=== PATIENT | female | born 1985 | race Caucasian/White ===

== ENCOUNTER 2021-06-24 09:30 | Emergency (ER) | payer OTHER, MEDICAID, SELFPAY ==
[2021-06-24 10:06] VITALS: PULSE 47; RESP 14; O2SAT 99
[2021-06-24 10:22] VITALS: TEMP 36.3
--- NOTE | 2021-06-24 10:25 | DI.CT.S_ITS ---
PROCEDURE: CT HEAD/BRAIN WO CON INDICATIONS: migraine abnormal right side TECHNIQUE: Noncontrast 4.5 mm thick angled axial sections acquired from the foramen magnum to the vertex, with coronal and sagittal reformats. For radiation dose reduction, the following was used: automated exposure control, adjustment of mA and/or kV according to patient size. COMPARISON: None. FINDINGS: Image quality: Excellent. CSF spaces: Basal cisterns are patent. No extra-axial fluid collections. Ventricles are normal in size and shape. Brain: No midline shift. No intracranial masses or hemorrhage. Herrmann-white matter interface is normal. Skull and face: Calvarium and visualized facial bones are intact, without suspicious lesions. Sinuses: The frontal, sphenoid, ethmoid and right maxillary sinuses are completely opacified without osseous sclerosis or expansion. Mucosal thickening involving the left maxillary sinus noted as well. Frontal sinuses are hypo pneumatized. IMPRESSION: 1. Lockhart sinusitis as above. 2. No intracranial hemorrhage or mass effect. Approved by: Serge Jacobo M.D. on 06/24/2021 at 9:45
--- NOTE | 2021-06-24 10:25 | ED.HA ---
HPI - Headache General Chief Complaint: Headache Stated Complaint: migrane for 6 days,numbness in arms Time Seen by Provider: 06/24/21 10:08 Mode of arrival: Ambulatory Limitations: no limitations History of Present Illness HPI Narrative: Patient is a 35-year-old female who presents with migraine headache. She says that she does have a history of migraines however she has not had 1 number of years they have been generally controlled with essential oils will cover this 1 started about 5-6 days ago. She does complain of right hand numbness and some ongoing like back pain down into her right arm as well. She feels nauseous she is only sensitive to light noise. She has taken time Motrin Excedrin or to wait. She has vomiting a few days ago but not today. She denies any fever or neck pain. No blurry vision or double vision. Related Data Home Medications Medication Instructions Recorded Confirmed No Known Home Medications 06/24/21 06/24/21 Allergies Allergy/AdvReac Type Severity Reaction Status Date / Time Sulfa (Sulfonamide Allergy Unknown Verified 06/24/21 10:34 Antibiotics) Review of Systems Review of Systems Narrative: A GENERAL: Denies chills, fatigue, malaise, fever, sweats, travel HEENT: Denies sinus pain, ear pain, sore throat, difficulty swallowing, neck pain RESPIRATORY: Denies dyspnea, cough, wheezing, hemoptysis, sputum. CARDIOVASCULAR: Denies chest pain, palpitations, orthopnea, edema GASTROINTESTINAL: Denies nausea, vomiting, abdominal pain, diarrhea, constipation, melena. : Denies dysuria, frequency, incontinence, hematuria, urinary retention, flank pain. MUSCULOSKELETAL: Denies weakness, joint pain, or bony pain SKIN: No rash, no erythema, no pruritus NEUROLOGIC: See HPI PSYCHIATRIC: No concerning psychosocial issues. 12 point review of systems is negative except for those stated above and HPI Exam Initial Vital Signs Initial Vital Signs: Vital Signs Pulse Rate 47 L 06/24/21 10:06 Respiratory Rate 14 06/24/21 10:06 Pulse Oximetry 99 06/24/21 10:06 GENERAL: Alert 35-year-old female in dark room HEENT: Head atraumatic,EOMI, pupils reactive, face symmetric, moist mucous membranes, no meningeal signs CARDIOVASCULAR: Regular rate and rhythm without murmurs, rubs or gallops. RESPIRATORY: Breath sounds equal bilaterally, no wheezes rales or rhonchi. ABDOMEN: Soft, nontender. Normoactive bowel sounds all 4 quadrants. No guarding or rebound. EXTREMITIES: Normal range of motion, no clubbing or edema. Neurovascularly intact NEUROLOGICAL: Alert and oriented x4.Normal gait and speech. Cranial nerves II through XII grossly intact. Good [id number], good [id number], strength equal bilaterally, no dysarthria or aphasia, sensation in tact to soft touch bilaterally, no visual changes, no facial droop SKIN: Warm, dry, no laceration, no petechiae, no rashes or lesions. Scores NIH Stroke Scale Level of Conciousness: Alert, keenly responsive Ask month/age: Answers both questions correctly. Open/close eyes, close hand: Performs both tasks correctly Best gaze horizontal: Normal Visual jefferson: No visual loss Facial palsy: Normal symetrical movement Left arm drift: No drift for full 10 sec Right arm drift: No drift for full 10 sec Left leg drift: No drift for full 5 sec Right leg drift: No drift for full 5 sec Limb ataxia: Absent Sensory on face/arms/legs: Normal, no sensory loss Best language: No aphasia, normal Dysarthria: Normal Extinction or inattention: No abnormality Total NIH Stroke scale score: 0 Course Orders Ordered: Discontinued Medications Diphenhydramine HCl (Diphenhydramine 50 Mg/Ml Vial) 25 mg IV NOW ONE Stop: 06/24/21 10:26 Last Admin: 06/24/21 10:57 Dose: 25 mg Documented by: DALIA Sodium Chloride (Normal Saline 0.9%) 1,000 mls @ 1,000 mls/hr IV BOLUS ONE Stop: 06/24/21 11:24 Last Infusion: 06/24/21 12:21 Dose: 0 mls/hr Documented by: Admin: 06/24/21 10:58 Dose: 1,000 mls/hr Documented by: DALIA Ketorolac Tromethamine (Ketorolac 30 Mg/Ml Vial) 30 mg IV NOW ONE Stop: 06/24/21 10:26 Last Admin: 06/24/21 10:57 Dose: 30 mg Documented by: DALIA Prochlorperazine (Prochlorperazine 10 Mg/2 Ml Vial) 10 mg IV NOW ONE Stop: 06/24/21 10:26 Last Admin: 06/24/21 10:57 Dose: 10 mg Documented by: DALIA Vital Signs Vital signs: Vital Signs - 8 hr 06/24/21 12:20 Pulse Rate 54 L Respiratory Rate 18 Blood Pressure 112/71 Pulse Oximetry 99 MDM - Headache Lab Data Labs: Point of Care Testing Test Results Negative Urine Dip Bedside Urine Glucose Negative Bedside Urine Bilirubin - Negative Bedside Urine Ketone - Negative Urine Specific [place] 1.010 Bedside Urine Occult Blood - Negative Bedside Urine pH 7.0 Bedside Urine Protein - Negative Bedside Urine Urobilinogen - Negative Bedside Urine Nitrite - Negative Bedside Urine Leukocytes - Negative Esterase Imaging Data CT scan - head: Radiologist's Impression: PROCEDURE:? CT HEAD/BRAIN WO CON ? INDICATIONS:? migraine abnormal right side ? TECHNIQUE:? Noncontrast 4.5 mm thick angled axial sections acquired from the foramen magnum to the vertex, with coronal and sagittal reformats.? For radiation dose reduction, the following was used:? automated exposure control, adjustment of mA and/or kV according to patient size.? ? COMPARISON:? None. ? FINDINGS:? Image quality:? Excellent.? ? CSF spaces:? Basal cisterns are patent.? No extra-axial fluid collections.? Ventricles are normal in size and shape.? ? Brain:? No midline shift.? No intracranial masses or hemorrhage.? Herrmann-white matter interface is normal.? ? Skull and face:? Calvarium and visualized facial bones are intact, without suspicious lesions.? ? Sinuses:? The frontal, sphenoid, ethmoid and right maxillary sinuses are completely opacified without osseous sclerosis or expansion.? Mucosal thickening involving the left maxillary sinus noted as well.? Frontal sinuses are hypo pneumatized. ? IMPRESSION:? ? 1. Lockhart sinusitis as above. 2. No intracranial hemorrhage or mass effect. ? ? ? [facility] Narrative Medical decision making narrative: Patient's pain improved past your migraine cocktail. She slept for a little while. She did have some numbness in her right hand pain from her shoulder all the way down which has improved. No significant signs of stroke. Ongoing headache for about 1 week probably a complication of a headache. Feeling significantly better head CT is negative. At this time likely complicated migraine recommend outpatient Discharge Plan Departure Patient Disposition: Home Clinical Impression: Migraine Instructions: DI for Migraine Activity Restrictions/Additional Instructions: *You have been diagnosed with migraine *What to do: Recommend going home to sleep. Take it easy. Clear headache gets better *Continue to take medications as directed Motrin 800 mg every 8 hours needed for [id number] *Follow up with your primary care provider in 2-3 days *Return to ER if you should have increasing headache, numbness tingling or weakness or any new, worsening or concerning symptoms Prescriptions: No Action No Known Home Medications RF: 0
[2021-06-24] MEDS: PROCHLORPERAZINE 10 MG/2 ML VIAL IV (10:57)
[2021-06-24] MEDS: diphenhydrAMINE 50 MG/ML VIAL 25 MG IV (10:57)
[2021-06-24] MEDS: KETOROLAC 30 MG/ML VIAL IV (10:57)
[2021-06-24] MEDS: SODIUM CHLORIDE 0.9% 1,000 ML 1000 ML IV (10:58)
[2021-06-24 12:20] VITALS: BP 112/71; PULSE 54; RESP 18; O2SAT 99
== END 2021-06-24 12:43 | disposition home or self-care (01) ==
PROVIDERS: Emergency Provider Emergency Medicine
DX: G43.909 Migraine, unspecified, not intractable, without status migrainosus (principal); R20.0 Anesthesia of skin
CPT/HCPCS: 70450; 81003; 81025; 96361; 96374; 96375; 99284; J0780; J1200; J1885

== ENCOUNTER 2022-03-23 13:16 | Emergency (ER) | payer OTHER, MEDICAID, SELFPAY ==
[2022-03-23] VITALS (17 sets, daily range): BP systolic 108–143; BP diastolic 61–85; PULSE 45–78; RESP 10–23; TEMP 36.1; O2SAT 87–100; BMI 31.5
--- NOTE | 2022-03-23 13:25 | DI.RAD.S_ITS ---
PROCEDURE: XR CHEST 1V INDICATIONS: chest pain TECHNIQUE: One view of the chest was acquired. COMPARISON: None. FINDINGS: Surgical changes and devices: None. Lungs and pleura: Lungs are clear. No pleural effusions or pneumothorax. Mediastinum: Mediastinal contours appear normal. Heart size is normal. Bones and chest wall: No suspicious bony lesions. Overlying soft tissues appear unremarkable. IMPRESSION: No acute cardiopulmonary disease process. Dictated by: Marla Brito MD, PhD on 03/23/2022 at 13:42 Approved by: Marla Brito MD, PhD on 03/23/2022 at 13:43
[2022-03-23 13:46] LABS: Add Manual Diff / Slide Review NO; Basophils Absolute Auto 100 /uL (0-100); Basophils Percent Auto 0.8 % (0-2); Eosinophils Absolute Auto 100 /uL (0-450); Eosinophils Percent Auto 1.6 % (2-4); Hemoglobin 12.1 g/dL (12.0-16.0); Lymphocytes Absolute Auto 2000 /uL (1100-4500); Lymphocytes Percent Auto 32.5 % (25-40); Mean Corpuscular HGB Conc 34.6 % (30-36); Mean Corpuscular Hemoglobin 30.6 PG (26-34); Mean Corpuscular Volume 88.4 fL (80-100); Monocytes Absolute Auto 300 /uL (0-900); Monocytes Percent Auto 4.8 % (3-14); Neutrophils Absolute Auto 3800 /uL (1500-7000); Neutrophils Percent Auto 60.3 % (50-75); Platelet Count 188 X10^3/uL (150-400); Red Blood Cell Count 3.96 X10^6/uL (4.0-5.2); Red Cell Distribution Width 13.3 % (11.6-14.8); White Blood Cell Count 6.3 X10^3/uL (4.5-11.0)
[2022-03-23 13:51] LABS: INR 1.1 (0.9-1.3); Prothrombin Time 11.9 SECONDS (10.1-12.7)
[2022-03-23 13:54] LABS: PTT Partial Thromboplastin Tim 33 SECONDS (26.4-36.2)
[2022-03-23 13:59] LABS: Alanine Aminotransferase 13 IU/L (<35); Albumin 4.4 g/dL (3.5-5.0); Albumin Globulin Ratio 1.4 (1.0-2.8); Alkaline Phosphatase 40 U/L (38-126); Aspartate Aminotransferase 24 IU/L (14-36); BUN Creatinine Ratio 20.9 (6-22); Bilirubin Total 0.5 mg/dL (0.2-1.3); Blood Urea Nitrogen 14 mg/dL (7-17); Carbon Dioxide 23 mmol/L (22-32); Chloride 106 mmol/L (98-107); Creatine Kinase 89 U/L (30-135); Estimated Glomerular Filt Rate > 60 mL/min (>60); Globulin 3.1 g/dL (1.7-4.1); Glucose 90 mg/dL (70-100); HEMOLYSIS < 15 (0-50); Lipase 77 U/L (23-300); Magnesium 1.9 mg/dL (1.6-2.3); Potassium 3.7 mmol/L (3.4-5.1); Sodium 138 mmol/L (137-145); Total Protein 7.5 g/dL (6.3-8.2)
[2022-03-23 14:09] LABS: Troponin I < 0.012 ng/mL (0.01-0.034)
--- NOTE | 2022-03-23 16:56 | ED_ITS ---
HPI - Chest Pain <KAMLESH Mims - Last Filed: 03/23/22 17:46> General Chief Complaint: Chest Pain Stated Complaint: Trouble breathing, light headed, face tingling Time Seen by Provider: 03/23/22 15:42 Source: patient Mode of arrival: Ambulatory Limitations: no limitations History of Present Illness HPI narrative: 36-year-old female, previous smoker, presents emergency department with complaints of epigastric pain that radiates under left breast. Symptoms started last night around 9:00 p.m. and returned this morning about 10:00 a.m.. Patient is adopted and unsure if she has any familial cardiac history. Patient reports a history of 2 pack a day cigarette smoking and use of speed as a teenager. Patient has a 2-year-old child at home who is currently stay with her parents. Patient reports increased amount of stress at work and her life but believe she has it under control. Patient is it history of anxiety attacks but this is a little different. Related Data Home Medications Medication Instructions Recorded Confirmed No Known Home Medications 06/24/21 03/23/22 Allergies Allergy/AdvReac Type Severity Reaction Status Date / Time Sulfa (Sulfonamide Allergy Unknown Verified 03/23/22 13:21 Antibiotics) Review of Systems <KAMLESH Mims - Last Filed: 03/23/22 17:46> Review of Systems Narrative: Narrative: GENERAL: Denies chills, fatigue, fever, sweats. See HPI HEENT: Denies sinus pain, ear pain, sore throat, difficulty swallowing, dizziness. RESPIRATORY: Denies dyspnea, cough, wheezing, sputum. CARDIOVASCULAR: Denies palpitations, edema. GASTROINTESTINAL: Denies nausea, vomiting, abdominal pain, diarrhea, constipation. : Denies dysuria, frequency, incontinence, hematuria, urinary retention, flank pain. MSK: Denies weakness, joint pain, or bony pain. SKIN: Denies rash, skin lesions, or pruritis. NEUROLOGIC: Denies weakness, dizziness, headache, numbness, confusion. PSYCHIATRIC: No concerning psychosocial issues. Patient History <KAMLESH Mims - Last Filed: 03/23/22 17:46> Social History Smoking Status: Unknown if ever smoked Smoking Status: Unknown if ever smoked alcohol intake frequency: holidays/special occasions only Substance Use Type: marijuana Exam <KAMLESH Mims - Last Filed: 03/23/22 17:46> Narrative Exam Narrative: Exam Narrative: GENERAL: This is a well-nourished, well-developed patient, in no acute distress HEAD: Atraumatic. Normocephalic. EYES: Pupils equal round and reactive. Extraocular motions intact. No scleral icterus, injection or drainage. ENT: Nose without bleeding, purulent drainage. Throat without erythema, tonsillar hypertrophy or exudate. Airway patent. NECK: Trachea midline. No JVD or lymphadenopathy. Nontender. CARDIOVASCULAR: Regular rate and rhythm without murmurs, peripheral pulses intact, cap refill <2 sec. RESPIRATORY: Breath sounds equal and clear bilaterally. No wheezes, rales, or rhonchi. No cough. No increased respiratory effort. No accessory muscle use. GASTROINTESTINAL: Abdomen soft, non-tender, nondistended without guarding or rebound. No suprapubic pain. Mild epigastric tenderness. MSK: Moves all extremities. Normal range of motion, no clubbing or edema. Deena rovascularly intact. NEURO: A&O x 3. SKIN: Warm, dry, no rashes or lesions noted. Initial Vital Signs Initial Vital Signs: Vital Signs Temperature 97.0 F L 03/23/22 13:21 Pulse Rate 56 L 03/23/22 13:21 Respiratory Rate 16 03/23/22 13:21 Blood Pressure 128/78 03/23/22 13:21 Pulse Oximetry 100 03/23/22 13:21 Oxygen Delivery Method 03/23/22 13:21 Reviewed <Kailee Acosta DO - Last Filed: 03/29/22 04:00> Initial Vital Signs Initial Vital Signs: Vital Signs Temperature 97.0 F L 03/23/22 13:21 Pulse Rate 56 L 03/23/22 13:21 Respiratory Rate 16 03/23/22 13:21 Blood Pressure 128/78 03/23/22 13:21 Pulse Oximetry 100 03/23/22 13:21 Oxygen Delivery Method 03/23/22 13:21 Course <KAMLESH Mims - Last Filed: 03/23/22 17:46> Orders Ordered: ED Orders 03/23/22 13:25 XR chest 1V Stat EKG-12 Lead Stat 03/23/22 13:33 Complete Blood Count AUTO DIFF Stat Comprehensive Metabolic Panel Stat Lipase Stat Magnesium Stat Partial Thromboplastin Time Stat Prothrombin Time INR Stat Troponin & CK Cardiac Panel Stat 03/23/22 15:42 EKG-12 Lead Stat 03/23/22 15:50 Trop I [Troponin I] Stat 03/23/22 16:20 COVID19 -Nasal RAPID/Pre-Proc Stat Vital Signs Vital signs: Vital Signs - 8 hr 03/23/22 13:21 03/23/22 13:48 03/23/22 13:50 Temperature 97.0 F L Pulse Rate 56 L 47 L 45 L Respiratory Rate 16 16 10 L Blood Pressure 128/78 Pulse Oximetry 100 95 100 Oxygen Delivery Method Room Air 03/23/22 13:50 03/23/22 14:00 03/23/22 14:00 Temperature Pulse Rate 50 L Respiratory Rate 16 Blood Pressure 117/66 108/66 Pulse Oximetry 100 Oxygen Delivery Method 03/23/22 14:30 03/23/22 14:30 03/23/22 15:00 Temperature Pulse Rate 48 L 69 Respiratory Rate 14 16 Blood Pressure 108/61 Pulse Oximetry 100 87 L Oxygen Delivery Method 03/23/22 15:01 03/23/22 15:01 03/23/22 15:30 Temperature Pulse Rate 55 L Respiratory Rate 18 Blood Pressure 116/67 119/67 Pulse Oximetry 100 Oxygen Delivery Method 03/23/22 15:30 03/23/22 16:00 03/23/22 16:00 Temperature Pulse Rate 48 L 47 L Respiratory Rate 23 14 Blood Pressure 118/68 Pulse Oximetry 100 100 Oxygen Delivery Method 03/23/22 16:30 03/23/22 16:30 03/23/22 17:00 Temperature Pulse Rate 45 L Respiratory Rate 13 Blood Pressure 116/73 128/85 Pulse Oximetry 100 Oxygen Delivery Method 03/23/22 17:00 03/23/22 17:44 Temperature Pulse Rate 55 L 78 Respiratory Rate 22 Blood Pressure Pulse Oximetry 100 96 Oxygen Delivery Method Room Air <Kailee Acosta, - Last Filed: 03/29/22 04:00> Orders Ordered: ED Orders 03/23/22 13:25 XR chest 1V Stat EKG-12 Lead Stat 03/23/22 13:33 Complete Blood Count AUTO DIFF Stat Comprehensive Metabolic Panel Stat Lipase Stat Magnesium Stat Partial Thromboplastin Time Stat Prothrombin Time INR Stat Troponin & CK Cardiac Panel Stat 03/23/22 15:42 EKG-12 Lead Stat 03/23/22 15:50 Trop I [Troponin I] Stat 03/23/22 16:20 COVID19 -Nasal RAPID/Pre-Proc Stat Vital Signs Vital signs: Vital Signs - 8 hr 03/23/22 13:21 03/23/22 13:48 03/23/22 13:50 Temperature 97.0 F L Pulse Rate 56 L 47 L 45 L Respiratory Rate 16 16 10 L Blood Pressure 128/78 Pulse Oximetry 100 95 100 Oxygen Delivery Method Room Air 03/23/22 13:50 03/23/22 14:00 03/23/22 14:00 Temperature Pulse Rate 50 L Respiratory Rate 16 Blood Pressure 117/66 108/66 Pulse Oximetry 100 Oxygen Delivery Method 03/23/22 14:30 03/23/22 14:30 03/23/22 15:00 Temperature Pulse Rate 48 L 69 Respiratory Rate 14 16 Blood Pressure 108/61 Pulse Oximetry 100 87 L Oxygen Delivery Method 03/23/22 15:01 03/23/22 15:01 03/23/22 15:30 Temperature Pulse Rate 55 L Respiratory Rate 18 Blood Pressure 116/67 119/67 Pulse Oximetry 100 Oxygen Delivery Method 03/23/22 15:30 03/23/22 16:00 03/23/22 16:00 Temperature Pulse Rate 48 L 47 L Respiratory Rate 23 14 Blood Pressure 118/68 Pulse Oximetry 100 100 Oxygen Delivery Method 03/23/22 16:30 03/23/22 16:30 03/23/22 17:00 Temperature Pulse Rate 45 L Respiratory Rate 13 Blood Pressure 116/73 128/85 Pulse Oximetry 100 Oxygen Delivery Method 03/23/22 17:00 03/23/22 17:44 Temperature Pulse Rate 55 L 78 Respiratory Rate 22 Blood Pressure Pulse Oximetry 100 96 Oxygen Delivery Method Room Air MDM - Chest Pain <KAMLESH Mims - Last Filed: 03/23/22 17:46> Differential Diagnosis Differential diagnosis: Likely atypical chest pain Lab Data Result diagrams: 03/23/22 13:33 03/23/22 13:33 Labs: Lab Results 03/23/22 03/23/22 03/23/22 Range/Units 13:33 13:33 13:33 WBC 6.3 (4.5-11.0) X10^3/uL RBC 3.96 L (4.0-5.2) X10^6/uL Hgb 12.1 (12.0-16.0) g/dL Hct 35.0 L (36-46) % MCV 88.4 (80-100) fL MCH 30.6 (26-34) PG MCHC 34.6 (30-36) % RDW 13.3 (11.6-14.8) % Plt Count 188 (150-400) X10^3/uL Neut % (Auto) 60.3 (50-75) % Lymph % (Auto) 32.5 (25-40) % [place] % (Auto) 4.8 (3-14) % Eos % (Auto) 1.6 L (2-4) % Baso % (Auto) 0.8 (0-2) % Neut # (Auto) 3800 (7156-8886) /uL Lymph # (Auto) 2000 (5243-2189) /uL [place] # (Auto) 300 (0-900) /uL Eos # (Auto) 100 (0-450) /uL Baso # (Auto) 100 (0-100) /uL PT 11.9 (10.1-12.7) SECONDS INR 1.1 (0.9-1.3) APTT 33 (26.4-36.2) SECONDS Sodium 138 (137-145) mmol/L Potassium 3.7 (3.4-5.1) mmol/L Chloride 106 (98-107) mmol/L Carbon Dioxide 23 (22-32) mmol/L BUN 14 (7-17) mg/dL Creatinine 0.67 (0.52-1.04) mg/dL Estimated GFR > 60 (>60) mL/min BUN/Creatinine Ratio 20.9 (6-22) Glucose 90 (70-100) mg/dL Calcium 9.0 (8.4-10.2) mg/dL Magnesium 1.9 (1.6-2.3) mg/dL Total Bilirubin 0.5 (0.2-1.3) mg/dL AST 24 (14-36) IU/L ALT 13 (<35) IU/L Alkaline Phosphatase 40 (38-126) U/L Total Creatine Kinase 89 (30-135) U/L CK-MB (CK-2) TNP CK-MB (CK-2) Rel Index TNP Troponin I < 0.012 (0.01-0.034) ng/mL Total Protein 7.5 (6.3-8.2) g/dL Albumin 4.4 (3.5-5.0) g/dL Globulin 3.1 (1.7-4.1) g/dL Albumin/Globulin Ratio 1.4 (1.0-2.8) Lipase 77 (23-300) U/L SARS-CoV-2 (PCR) (Negative) 03/23/22 03/23/22 Range/Units 15:50 16:20 WBC (4.5-11.0) X10^3/uL RBC (4.0-5.2) X10^6/uL Hgb (12.0-16.0) g/dL Hct (36-46) % MCV (80-100) fL MCH (26-34) PG MCHC (30-36) % RDW (11.6-14.8) % Plt Count (150-400) X10^3/uL Neut % (Auto) (50-75) % Lymph % (Auto) (25-40) % [place] % (Auto) (3-14) % Eos % (Auto) (2-4) % Baso % (Auto) (0-2) % Neut # (Auto) (1806-5654) /uL Lymph # (Auto) (0982-1568) /uL [place] # (Auto) (0-900) /uL Eos # (Auto) (0-450) /uL Baso # (Auto) (0-100) /uL PT (10.1-12.7) SECONDS INR (0.9-1.3) APTT (26.4-36.2) SECONDS Sodium (137-145) mmol/L Potassium (3.4-5.1) mmol/L Chloride (98-107) mmol/L Carbon Dioxide (22-32) mmol/L BUN (7-17) mg/dL Creatinine (0.52-1.04) mg/dL Estimated GFR (>60) mL/min BUN/Creatinine Ratio (6-22) Glucose (70-100) mg/dL Calcium (8.4-10.2) mg/dL Magnesium (1.6-2.3) mg/dL Total Bilirubin (0.2-1.3) mg/dL AST (14-36) IU/L ALT (<35) IU/L Alkaline Phosphatase (38-126) U/L Total Creatine Kinase (30-135) U/L CK-MB (CK-2) CK-MB (CK-2) Rel Index Troponin I < 0.012 (0.01-0.034) ng/mL Total Protein (6.3-8.2) g/dL Albumin (3.5-5.0) g/dL Globulin (1.7-4.1) g/dL Albumin/Globulin Ratio (1.0-2.8) Lipase (23-300) U/L SARS-CoV-2 (PCR) Negative (Negative) Point of Care Testing Test Results Negative Urine Dip Bedside Urine Glucose Negative Bedside Urine Bilirubin - Negative Bedside Urine Ketone - Negative Urine Specific [place] 1.025 Bedside Urine Occult Blood - Negative Bedside Urine pH 6.0 Bedside Urine Protein - Negative Bedside Urine Urobilinogen - Negative Bedside Urine Nitrite - Negative Bedside Urine Leukocytes - Negative Esterase Imaging Data Chest x-ray: Radiologist's Impression: [address] [id number] XRay Report Signed Patient: Kiara Kamara MR#: [id number] : 1985 Acct:[id number] Age/Sex: 36 / F Date of Service: 03/23/22 Loc: ED Accession Number: [id number] ?? Procedure: XR chest 1V Ordering Provider: Kailee Acosta D.O. PROCEDURE:? XR CHEST 1V ? INDICATIONS:? chest pain ? TECHNIQUE:? One view of the chest was acquired.? ? COMPARISON:? None. ? FINDINGS:? ? Surgical changes and devices:? None.? ? Lungs and pleura:? Lungs are clear.? No pleural effusions or pneumothorax.? ? Mediastinum:? Mediastinal contours appear normal.? Heart size is normal.? ? Bones and chest wall:? No suspicious bony lesions.? Overlying soft tissues appear unremarkable.? ? IMPRESSION:? No acute cardiopulmonary disease process. ? ? Dictated by: Marla Brito MD, PhD on 03/23/2022 at 13:42 ? ? Approved by: Marla Brito MD, PhD on 03/23/2022 at 13:43 ? ECG Data Attestation: I personally reviewed and interpreted this ECG as follows: Interpretation: Sinus spencer w/ vent rate of [address]-t changes. MDM Narrative Medical decision making narrative: 36-year-old female who presents emergency department with chest pain on and off since last night. Chest x-ray was normal. Labs are all within normal limits. Orthostatic vital signs taken and a road test were all negative. Will discharge patient home with instructions to follow up with her family doctor for possible referral for a Zio patch. Discussed plan of care and return precautions with patient, who was agreeable with course of action. <Kailee Acosta, DO - Last Filed: 03/29/22 04:00> Lab Data Labs: Lab Results 03/23/22 03/23/22 03/23/22 Range/Units 13:33 13:33 13:33 WBC 6.3 (4.5-11.0) X10^3/uL RBC 3.96 L (4.0-5.2) X10^6/uL Hgb 12.1 (12.0-16.0) g/dL Hct 35.0 L (36-46) % MCV 88.4 (80-100) fL MCH 30.6 (26-34) PG MCHC 34.6 (30-36) % RDW 13.3 (11.6-14.8) % Plt Count 188 (150-400) X10^3/uL Neut % (Auto) 60.3 (50-75) % Lymph % (Auto) 32.5 (25-40) % [place] % (Auto) 4.8 (3-14) % Eos % (Auto) 1.6 L (2-4) % Baso % (Auto) 0.8 (0-2) % Neut # (Auto) 3800 (7718-4276) /uL Lymph # (Auto) 2000 (2116-3800) /uL [place] # (Auto) 300 (0-900) /uL Eos # (Auto) 100 (0-450) /uL Baso # (Auto) 100 (0-100) /uL PT 11.9 (10.1-12.7) SECONDS INR 1.1 (0.9-1.3) APTT 33 (26.4-36.2) SECONDS Sodium 138 (137-145) mmol/L Potassium 3.7 (3.4-5.1) mmol/L Chloride 106 (98-107) mmol/L Carbon Dioxide 23 (22-32) mmol/L BUN 14 (7-17) mg/dL Creatinine 0.67 (0.52-1.04) mg/dL Estimated GFR > 60 (>60) mL/min BUN/Creatinine Ratio 20.9 (6-22) Glucose 90 (70-100) mg/dL Calcium 9.0 (8.4-10.2) mg/dL Magnesium 1.9 (1.6-2.3) mg/dL Total Bilirubin 0.5 (0.2-1.3) mg/dL AST 24 (14-36) IU/L ALT 13 (<35) IU/L Alkaline Phosphatase 40 (38-126) U/L Total Creatine Kinase 89 (30-135) U/L CK-MB (CK-2) TNP CK-MB (CK-2) Rel Index TNP Troponin I < 0.012 (0.01-0.034) ng/mL Total Protein 7.5 (6.3-8.2) g/dL Albumin 4.4 (3.5-5.0) g/dL Globulin 3.1 (1.7-4.1) g/dL Albumin/Globulin Ratio 1.4 (1.0-2.8) Lipase 77 (23-300) U/L SARS-CoV-2 (PCR) (Negative) 03/23/22 03/23/22 Range/Units 15:50 16:20 WBC (4.5-11.0) X10^3/uL RBC (4.0-5.2) X10^6/uL Hgb (12.0-16.0) g/dL Hct (36-46) % MCV (80-100) fL MCH (26-34) PG MCHC (30-36) % RDW (11.6-14.8) % Plt Count (150-400) X10^3/uL Neut % (Auto) (50-75) % Lymph % (Auto) (25-40) % [place] % (Auto) (3-14) % Eos % (Auto) (2-4) % Baso % (Auto) (0-2) % Neut # (Auto) (5243-1278) /uL Lymph # (Auto) (3028-9493) /uL [place] # (Auto) (0-900) /uL Eos # (Auto) (0-450) /uL Baso # (Auto) (0-100) /uL PT (10.1-12.7) SECONDS INR (0.9-1.3) APTT (26.4-36.2) SECONDS Sodium (137-145) mmol/L Potassium (3.4-5.1) mmol/L Chloride (98-107) mmol/L Carbon Dioxide (22-32) mmol/L BUN (7-17) mg/dL Creatinine (0.52-1.04) mg/dL Estimated GFR (>60) mL/min BUN/Creatinine Ratio (6-22) Glucose (70-100) mg/dL Calcium (8.4-10.2) mg/dL Magnesium (1.6-2.3) mg/dL Total Bilirubin (0.2-1.3) mg/dL AST (14-36) IU/L ALT (<35) IU/L Alkaline Phosphatase (38-126) U/L Total Creatine Kinase (30-135) U/L CK-MB (CK-2) CK-MB (CK-2) Rel Index Troponin I < 0.012 (0.01-0.034) ng/mL Total Protein (6.3-8.2) g/dL Albumin (3.5-5.0) g/dL Globulin (1.7-4.1) g/dL Albumin/Globulin Ratio (1.0-2.8) Lipase (23-300) U/L SARS-CoV-2 (PCR) Negative (Negative) Point of Care Testing Test Results Negative Urine Dip Bedside Urine Glucose Negative Bedside Urine Bilirubin - Negative Bedside Urine Ketone - Negative Urine Specific [place] 1.025 Bedside Urine Occult Blood - Negative Bedside Urine pH 6.0 Bedside Urine Protein - Negative Bedside Urine Urobilinogen - Negative Bedside Urine Nitrite - Negative Bedside Urine Leukocytes - Negative Esterase Discharge Plan Departure Patient Disposition: Home Clinical Impression: Atypical chest pain Instructions: DI for Atypical Chest Pain Activity Restrictions/Additional Instructions: *You have been diagnosed with atypical chest pain. Your chest x-ray was normal and all of your labs are within limits. I am not sure what exactly causing your chest pain but we have ruled out that you are not having a heart attack or a pulmonary embolism. Please follow-up with your family doctor tomorrow as I believe you should have some cardiac monitoring such as a Zio patch. For any worsening symptoms that include worsening chest pain, difficulty breathing, intolerable pain, etc. please feel free to return to the emergency department. *What to do: *Please continue to take your regular medications as directed. [ ] New medication prescriptions sent to your pharmacy: [ ] [ ] New medication written as a paper prescription [x] No new medications given *Please follow up with your primary care provider in 2-3 days, call for an appointment. Let them know you were seen in the Emergency Department and that we ask that you be seen in follow up. We will electronically transmit a record of today's note if your PCP is in our system *If you do not have a primary care provider please contact the [facility] Resource line at [phone]. They will ask some questions about your medical history and help get you set up with a doctor in the community. ? Return to ER if you should have any new, worsening or concerning symptoms, such as worsening pain, severe headache, confusion, chest pain, difficulty breathing, fever greater than 101 F, shaking chills, persistent vomiting to the point that you cannot drink fluids, or other new or worsening symptoms. Prescriptions: No Action No Known Home Medications Visit Report Forms: Patient Portal/API <Kailee Acosta DO - Last Filed: 03/29/22 04:00> [facility] ED Attending Nikole Attestation: I was immediately available in the department for consultation. Documentation has been reviewed.
[2022-03-23 17:11] LABS: Troponin I < 0.012 ng/mL (0.01-0.034)
[2022-03-23 17:13] LABS: COVID19 -Nasal RAPID Negative (Negative)
== END 2022-03-23 18:14 | disposition home or self-care (01) ==
PROVIDERS: Emergency Medicine; Emergency Provider Registered Nurse
DX: R07.89 Other chest pain (principal); Z20.822 Contact with and (suspected) exposure to COVID-19
CPT/HCPCS: 36415; 71045; 80053; 81003; 81025; 82550; 83690; 83735; 84484; 85025; 85610; 85730; 87635; 93005; 93010; 99284; C9803

== ENCOUNTER 2023-06-02 16:10 | Emergency (ER) | payer OTHER, MEDICAID, SELFPAY ==
[2023-06-02 16:18] VITALS: BP 140/94; PULSE 68; RESP 20; TEMP 36.9; O2SAT 98; BMI 34.0
[2023-06-02 16:23] VITALS: PULSE 68; O2SAT 100
[2023-06-02 16:26] VITALS: BP 152/72; PULSE 56; RESP 13; O2SAT 99
[2023-06-02 16:30] VITALS: BP 122/72; PULSE 56; RESP 17; O2SAT 100
--- NOTE | 2023-06-02 16:36 | DI.RAD.S_ITS ---
PROCEDURE: XR CHEST 2V INDICATIONS: epigastric pain radiates up throat TECHNIQUE: 2 views of the chest were acquired. COMPARISON: [facility], CR, XR CHEST 1V, 03/23/2022, 13:57. FINDINGS: Surgical changes and devices: None. Lungs and pleura: Lungs are clear. No pleural effusions or pneumothorax. Mediastinum: Mediastinal contours are normal. Heart size is normal. Bones and chest wall: No suspicious bony abnormalities. Soft tissues appear unremarkable. IMPRESSION: No evidence acute pulmonary process. Dictated by: Sebastian Alejo M.D. on 06/02/2023 at 16:59 Approved by: Sebastian Alejo M.D. on 06/02/2023 at 17:00
[2023-06-02 16:44] LABS: Add Manual Diff / Slide Review NO; Basophils Absolute Auto 100 /uL (0-100); Basophils Percent Auto 0.9 % (0-2); Eosinophils Absolute Auto 100 /uL (0-450); Hematocrit 36.9 % (36-46); Hemoglobin 12.6 g/dL (12.0-16.0); Lymphocytes Absolute Auto 2000 /uL (1100-4500); Lymphocytes Percent Auto 31.9 % (25-40); Mean Corpuscular HGB Conc 34.2 % (30-36); Mean Corpuscular Hemoglobin 30.8 PG (26-34); Monocytes Absolute Auto 300 /uL (0-900); Monocytes Percent Auto 4.8 % (3-14); Neutrophils Absolute Auto 3800 /uL (1500-7000); Neutrophils Percent Auto 60.4 % (50-75); Platelet Count 214 X10^3/uL (150-400); Red Cell Distribution Width 12.8 % (11.6-14.8); White Blood Cell Count 6.4 X10^3/uL (4.5-11.0)
[2023-06-02 17:00] VITALS: PULSE 56; RESP 19; O2SAT 100
[2023-06-02 17:00] LABS: Alanine Aminotransferase 18 IU/L (<35); Albumin 4.7 g/dL (3.5-5.0); Albumin Globulin Ratio 1.6 (1.0-2.8); Alkaline Phosphatase 45 U/L (38-126); Aspartate Aminotransferase 28 IU/L (14-36); BUN Creatinine Ratio 20.3 (6-22); Bilirubin Total 0.6 mg/dL (0.2-1.3); Blood Urea Nitrogen 13 mg/dL (7-17); Calcium 9.7 mg/dL (8.4-10.2); Carbon Dioxide 23 mmol/L (22-32); Chloride 102 mmol/L (98-107); Creatine Kinase 87 U/L (30-135); Estimated Glomerular Filt Rate > 60 mL/min (>60); Glucose 84 mg/dL (70-100); HEMOLYSIS < 15 (0-50); Lipase 57 U/L (23-300); Potassium 3.4 mmol/L (3.4-5.1); Sodium 133 mmol/L (137-145); Total Protein 7.7 g/dL (6.3-8.2)
[2023-06-02] MEDS: MAG HYDROX/ALUMINUM/SIMETH SUS 20 ML, LIDOCAINE VISCOUS 2% 15 ML PO (17:00)
--- NOTE | 2023-06-02 17:01 | ED.CHESTPAIN ---
HPI - Chest Pain <Sue Watson PA-C - Last Filed: 06/02/23 17:33> General Chief Complaint: Chest Pain Stated Complaint: chest pain/right arm/neck pain/numb Time Seen by Provider: 06/02/23 16:13 Source: patient Mode of arrival: Ambulatory Limitations: no limitations History of Present Illness HPI narrative: Patient is a 37-year-old female who presents with epigastric discomfort x1 week. She reports is feeling is like a bubble of pressure in her epigastrium and it increases in discomfort when she swallows or chews food. She also complains of numbness and tingling in her right arm and a knot in her right trapezius. She works as a warehouse analyst. She is tried [id number] antacid medicine such as Tums, Gas-X, etcetera without relief. She reports a minimal appetite, has been eating potato chips and cheese for the past several days because she can tolerate it. She had an episode or 2 of diarrhea yesterday, otherwise reports normal stools. No nausea or vomiting and no blood in her stool. She does drink a lot of coffee but has been cutting back over the past week. She does not drink alcohol or use any substances currently. Related Data Home Medications Medication Instructions Recorded Confirmed No Known Home Medications 06/24/21 03/23/22 Allergies Allergy/AdvReac Type Severity Reaction Status Date / Time Sulfa (Sulfonamide Allergy Unknown Verified 03/23/22 13:21 Antibiotics) Review of Systems <Sue Watson PA-C - Last Filed: 06/02/23 17:33> Review of Systems ROS Unobtainable: All systems reviewed & are unremarkable except as noted in HPI and below Patient History <Sue Watson PA-C - Last Filed: 06/02/23 17:33> Social History Smoking Status: Former smoker Smoking Status: Former smoker alcohol intake frequency: holidays/special occasions only Substance Use Type: marijuana Exam <Sue Watson PA-C - Last Filed: 06/02/23 17:33> Narrative Exam Narrative: GENERAL: 37 year old patient appears stated age. Well-developed patient, in no distress. NEURO: AOx3. HEAD: Atraumatic. Normocephalic. EYES: Pupils equal round and reactive. Extraocular motions intact. No scleral icterus. No injection or drainage. ENT: Nose without bleeding or purulent drainage. Airway patent. NECK: Trachea midline. Non tender CARDIOVASCULAR: Regular rate and rhythm without murmurs, gallops, or rubs. RESPIRATORY: Clear to auscultation. Breath sounds equal bilaterally. No wheezes, rales, or rhonchi. No pain with rib hooking maneuver. GASTROINTESTINAL: Abdomen soft, negative El's, positive epigastric tenderness, nondistended. EXTREMITIES: No edema or joint tenderness. SKIN: No rash or erythema of visible areas Initial Vital Signs Initial Vital Signs: Vital Signs Temperature 98.4 F 06/02/23 16:18 Pulse Rate 68 06/02/23 16:18 Respiratory Rate 20 06/02/23 16:18 Blood Pressure 140/94 H 06/02/23 16:18 Pulse Oximetry 98 06/02/23 16:18 Oxygen Delivery Method Room Air 06/02/23 16:18 <Mehran Greer DO - Last Filed: 06/02/23 17:43> Initial Vital Signs Initial Vital Signs: Vital Signs Temperature 98.4 F 06/02/23 16:18 Pulse Rate 68 06/02/23 16:18 Respiratory Rate 20 06/02/23 16:18 Blood Pressure 140/94 H 06/02/23 16:18 Pulse Oximetry 98 06/02/23 16:18 Oxygen Delivery Method Room Air 06/02/23 16:18 Course <Sue Watson PA-C - Last Filed: 06/02/23 17:33> Orders Ordered: ED Orders 06/02/23 16:20 Complete Blood Count AUTO DIFF Stat Comprehensive Metabolic Panel Stat Lipase Stat Troponin & CK Cardiac Panel Stat 06/02/23 16:35 EKG-12 Lead Stat 06/02/23 16:36 XR chest 2V Stat Discontinued Medications Al Hydrox/Mg Hydrox/Simethicone 20 ml/ Lidocaine HCl 15 ml 0 ml PO NOW ONE Stop: 06/02/23 16:37 Last Admin: 06/02/23 17:00 Dose: 35 ml Documented By: KADEN Vital Signs Vital signs: Vital Signs - 8 hr 06/02/23 16:18 06/02/23 16:23 06/02/23 16:26 Temperature 98.4 F Pulse Rate 68 68 Respiratory Rate 20 Blood Pressure 140/94 H 152/72 H Pulse Oximetry 98 100 Oxygen Delivery Method Room Air 06/02/23 16:26 06/02/23 16:30 06/02/23 16:30 Temperature Pulse Rate 56 L 56 L Respiratory Rate 13 17 Blood Pressure 122/72 Pulse Oximetry 99 100 Oxygen Delivery Method 06/02/23 17:00 06/02/23 17:30 Temperature Pulse Rate 56 L 49 L Respiratory Rate 19 19 Blood Pressure 122/72 Pulse Oximetry 100 100 Oxygen Delivery Method <Mehran Greer DO - Last Filed: 06/02/23 17:43> Orders Ordered: ED Orders 06/02/23 16:20 Complete Blood Count AUTO DIFF Stat Comprehensive Metabolic Panel Stat Lipase Stat Troponin & CK Cardiac Panel Stat 06/02/23 16:35 EKG-12 Lead Stat 06/02/23 16:36 XR chest 2V Stat Discontinued Medications Al Hydrox/Mg Hydrox/Simethicone 20 ml/ Lidocaine HCl 15 ml 0 ml PO NOW ONE Stop: 06/02/23 16:37 Last Admin: 06/02/23 17:00 Dose: 35 ml Documented By: KADEN Vital Signs Vital signs: Vital Signs - 8 hr 06/02/23 16:18 06/02/23 16:23 06/02/23 16:26 Temperature 98.4 F Pulse Rate 68 68 Respiratory Rate 20 Blood Pressure 140/94 H 152/72 H Pulse Oximetry 98 100 Oxygen Delivery Method Room Air 06/02/23 16:26 06/02/23 16:30 06/02/23 16:30 Temperature Pulse Rate 56 L 56 L Respiratory Rate 13 17 Blood Pressure 122/72 Pulse Oximetry 99 100 Oxygen Delivery Method 06/02/23 17:00 06/02/23 17:30 Temperature Pulse Rate 56 L 49 L Respiratory Rate 19 19 Blood Pressure 122/72 Pulse Oximetry 100 100 Oxygen Delivery Method MDM - Chest Pain <Sue Watson PA-C - Last Filed: 06/02/23 17:33> Lab Data 06/02/23 16:20 06/02/23 16:20 Labs: Lab Results 06/02/23 Range/Units 16:20 WBC 6.4 (4.5-11.0) X10^3/uL RBC 4.10 (4.0-5.2) X10^6/uL Hgb 12.6 (12.0-16.0) g/dL Hct 36.9 (36-46) % MCV 90.0 (80-100) fL MCH 30.8 (26-34) PG MCHC 34.2 (30-36) % RDW 12.8 (11.6-14.8) % Plt Count 214 (150-400) X10^3/uL Neut % (Auto) 60.4 (50-75) % Lymph % (Auto) 31.9 (25-40) % [place] % (Auto) 4.8 (3-14) % Eos % (Auto) 2.0 (2-4) % Baso % (Auto) 0.9 (0-2) % Neut # (Auto) 3800 (5952-3173) /uL Lymph # (Auto) 2000 (8575-4649) /uL [place] # (Auto) 300 (0-900) /uL Eos # (Auto) 100 (0-450) /uL Baso # (Auto) 100 (0-100) /uL Sodium 133 L (137-145) mmol/L Potassium 3.4 (3.4-5.1) mmol/L Chloride 102 (98-107) mmol/L Carbon Dioxide 23 (22-32) mmol/L BUN 13 (7-17) mg/dL Creatinine 0.64 (0.52-1.04) mg/dL Estimated GFR > 60 (>60) mL/min BUN/Creatinine Ratio 20.3 (6-22) Glucose 84 (70-100) mg/dL Calcium 9.7 (8.4-10.2) mg/dL Total Bilirubin 0.6 (0.2-1.3) mg/dL AST 28 (14-36) IU/L ALT 18 (<35) IU/L Alkaline Phosphatase 45 (38-126) U/L Total Creatine Kinase 87 (30-135) U/L Troponin I < 0.012 (0.01-0.034) ng/mL Total Protein 7.7 (6.3-8.2) g/dL Albumin 4.7 (3.5-5.0) g/dL Globulin 3.0 (1.7-4.1) g/dL Albumin/Globulin Ratio 1.6 (1.0-2.8) Lipase 57 (23-300) U/L Imaging Data Chest x-ray: Radiologist's Impression: PROCEDURE: XR CHEST 2V INDICATIONS: epigastric pain radiates up throat TECHNIQUE: 2 views of the chest were acquired. COMPARISON: [facility], , XR CHEST 1V, 03/23/2022, 13:57. FINDINGS: Surgical changes and devices: None. Lungs and pleura: Lungs are clear. No pleural effusions or pneumothorax. Mediastinum: Mediastinal contours are normal. Heart size is normal. Bones and chest wall: No suspicious bony abnormalities. Soft tissues appear unremarkable. IMPRESSION: No evidence acute pulmonary process. Dictated by: Sebastian Alejo M.D. on 06/02/2023 at 16:59 Approved by: Sebastian Alejo M.D. on 06/02/2023 at 17:00 ECG Data Interpretation: Sinus bradycardia with sinus arrhythmia, rate 53, PA 158, QRS 100, no ST-T changes. MDM Narrative Medical decision making narrative: Multiple etiologies for patient's symptoms considered including, but not limited to: ACS, GERD, gastritis, PUD, costochondritis, cholecystitis, pancreatitis, rib tip syndrome. Labs without clinically significant abnormality, chest x-ray reassuring, EKG shows sinus bradycardia with a sinus arrhythmia. Patient recently completed an at home playground monitor, has follow up with her primary care in June to see the results. She feels somewhat better after GI cocktail. I suspect her pain is secondary to GERD/gastritis. Advised trial of PPI with diet and lifestyle modification; if not improving by the time she sees her primary care in June, would consider further investigation/referral to GI. Patient's symptoms improved over duration of stay with above-stated therapies. Findings and discharge diagnosis discussed with patient/family followed by verbalization of understanding Return precautions discussed with patient/family whom verbalize understanding of diagnosis and plan <Mehran Greer, DO - Last Filed: 06/02/23 17:43> Lab Data Labs: Lab Results 06/02/23 Range/Units 16:20 WBC 6.4 (4.5-11.0) X10^3/uL RBC 4.10 (4.0-5.2) X10^6/uL Hgb 12.6 (12.0-16.0) g/dL Hct 36.9 (36-46) % MCV 90.0 (80-100) fL MCH 30.8 (26-34) PG MCHC 34.2 (30-36) % RDW 12.8 (11.6-14.8) % Plt Count 214 (150-400) X10^3/uL Neut % (Auto) 60.4 (50-75) % Lymph % (Auto) 31.9 (25-40) % [place] % (Auto) 4.8 (3-14) % Eos % (Auto) 2.0 (2-4) % Baso % (Auto) 0.9 (0-2) % Neut # (Auto) 3800 (3919-4023) /uL Lymph # (Auto) 2000 (4444-0326) /uL [place] # (Auto) 300 (0-900) /uL Eos # (Auto) 100 (0-450) /uL Baso # (Auto) 100 (0-100) /uL Sodium 133 L (137-145) mmol/L Potassium 3.4 (3.4-5.1) mmol/L Chloride 102 (98-107) mmol/L Carbon Dioxide 23 (22-32) mmol/L BUN 13 (7-17) mg/dL Creatinine 0.64 (0.52-1.04) mg/dL Estimated GFR > 60 (>60) mL/min BUN/Creatinine Ratio 20.3 (6-22) Glucose 84 (70-100) mg/dL Calcium 9.7 (8.4-10.2) mg/dL Total Bilirubin 0.6 (0.2-1.3) mg/dL AST 28 (14-36) IU/L ALT 18 (<35) IU/L Alkaline Phosphatase 45 (38-126) U/L Total Creatine Kinase 87 (30-135) U/L Troponin I < 0.012 (0.01-0.034) ng/mL Total Protein 7.7 (6.3-8.2) g/dL Albumin 4.7 (3.5-5.0) g/dL Globulin 3.0 (1.7-4.1) g/dL Albumin/Globulin Ratio 1.6 (1.0-2.8) Lipase 57 (23-300) U/L Discharge Plan Departure Patient Disposition: Home Clinical Impression: Epigastric abdominal pain Instructions: DI for Gastroesophageal Reflux Disease (GERD), DI for Epigastric Pain Activity Restrictions/Additional Instructions: *You have been diagnosed with noncardiac epigastric pain. I suspect this may be related to gastroesophageal reflux disease and/or gastritis. I would suggest taking a proton pump inhibitor medication, such as omeprazole or pantoprazole, which is available [id number]. Some people find relief with the medication quickly but they can take 4-6 weeks to take effect. You should take them on an empty stomach 30 minutes prior to eating or drinking. I would also advised decreasing your coffee intake and avoiding other foods that cause you pain. If you are not noticing improvement with this medication, please follow up with your primary care and perhaps consider a referral to Gastroenterology. *What to do: *Please continue to take your regular medications as directed. [ ] New medication prescriptions sent to your pharmacy: [ ] [ ] New medication written as a paper prescription [x] No new medications given *Please follow up with your primary care provider in 2-3 days, call for an appointment. Let them know you were seen in the Emergency Department and that we ask that you be seen in follow up. We will electronically transmit a record of today's note if your PCP is in our system *If you do not have a primary care provider please contact the [facility] Resource line at [phone]. They will ask some questions about your medical history and help get you set up with a doctor in the community. *Return to Emergency Department if you should have any new, worsening or concerning symptoms, such as [fever greater than 101 F, shaking chills, worsening pain, persistent vomiting or other concerning symptoms]. Prescriptions: No Action No Known Home Medications Stand Alone Forms: Patient Portal/API ED Sign-out <Mehran Greer, DO - Last Filed: 06/02/23 17:43> [facility] Dr Greer Co-Sign Statement: I was available for consultation during this patient's emergency department visit. This chart is signed by myself for administrative purposes only. I did not have direct contact with this patient during this visit. They were seen independently by the APC.
[2023-06-02 17:11] LABS: Troponin I < 0.012 ng/mL (0.01-0.034)
[2023-06-02 17:30] VITALS: BP 122/72; PULSE 49; RESP 19; O2SAT 100
== END 2023-06-02 17:38 | disposition home or self-care (01) ==
PROVIDERS: Emergency Provider Physician Assistant
DX: R10.13 Epigastric pain (principal)
CPT/HCPCS: 36415; 71046; 80053; 82550; 83690; 84484; 85025; 93005; 93010; 99284

== ENCOUNTER 2024-03-23 16:21 | Emergency (ER) | payer OTHER, MEDICAID, SELFPAY ==
[2024-03-23] VITALS (7 sets, daily range): BP systolic 104–146; BP diastolic 57–88; PULSE 63–74; RESP 16; TEMP 36.3; O2SAT 98–100; BMI 35.7
--- NOTE | 2024-03-23 16:47 | DI.US.S_ITS ---
PROCEDURE: US OB <= 14 WEEKS FETUS INDICATIONS: Possible miscarriage OUTSIDE/PRIOR DATING DATA: Last menstrual period (LMP): 12/27/2023 LMP-based estimated date of delivery (ANGLE): 10/02/2024 TECHNIQUE: Real-time scanning was performed of the fetus and maternal pelvic organs, with image documentation. Endovaginal scanning was also performed to better visualize the fetus and maternal ovaries. COMPARISON: None. FINDINGS: Intrauterine fluid collection is seen with low level internal echoes. The collection measures 17 x 13 x 12 mm, with mean sac diameter of 14 mm. No pole is seen. Maternal organs: Ovaries are not visualized. IMPRESSION: of unknown location. Intrauterine irregular heterogeneous fluid collection is seen with mean diameter of 14 mm, which could represent an abnormal gestational sac. No pole is seen. Findings are suspicious but not diagnostic for early failure and correlation with clinical findings and beta HCG measurements is recommended. Follow-up ultrasound could be performed if indicated clinically. Approved by: Quique Lyon M.D. on 03/23/2024 at 17:48
[2024-03-23 17:09] LABS: Bacteria Urine None Seen; Culture Indicated Urine Specimen Cultured; RBC Urine None Seen (0-5/HPF); Squamous Epithelial Cell Urine None Seen (0-5/HPF); Urine Volume 10mL (spun); WBC Urine 1-5/HPF (0-5/HPF)
[2024-03-23 17:31] LABS: Add Manual Diff / Slide Review NO; Basophils Absolute Auto 100 /uL (0-100); Basophils Percent Auto 0.8 % (0-2); Eosinophils Absolute Auto 300 /uL (0-450); Eosinophils Percent Auto 4.1 % (2-4); Hematocrit 33.7 % (36-46); Hemoglobin 11.3 g/dL (12.0-16.0); Lymphocytes Absolute Auto 2100 /uL (1100-4500); Lymphocytes Percent Auto 30.7 % (25-40); Mean Corpuscular HGB Conc 33.6 % (30-36); Mean Corpuscular Hemoglobin 30.1 PG (26-34); Mean Corpuscular Volume 89.7 fL (80-100); Monocytes Absolute Auto 400 /uL (0-900); Monocytes Percent Auto 5.8 % (3-14); Neutrophils Absolute Auto 4100 /uL (1500-7000); Neutrophils Percent Auto 58.6 % (50-75); Platelet Count 231 X10^3/uL (150-400); Red Blood Cell Count 3.76 X10^6/uL (4.0-5.2); Red Cell Distribution Width 12.8 % (11.6-14.8)
[2024-03-23 17:43] LABS: Alanine Aminotransferase 18 IU/L (<35); Albumin 4.5 g/dL (3.5-5.0); Albumin Globulin Ratio 1.6 (1.0-2.8); Alkaline Phosphatase 52 U/L (38-126); Aspartate Aminotransferase 24 IU/L (14-36); BUN Creatinine Ratio 19.1 (6-22); Bilirubin Total 0.4 mg/dL (0.2-1.3); Blood Urea Nitrogen 18 mg/dL (7-17); Calcium 9.2 mg/dL (8.4-10.2); Carbon Dioxide 23 mmol/L (22-32); Chloride 107 mmol/L (98-107); Estimated Glomerular Filt Rate > 60 mL/min (>60); Globulin 2.9 g/dL (1.7-4.1); Glucose 94 mg/dL (70-100); HEMOLYSIS < 15 (0-50); Lipase 107 U/L (23-300); Potassium 3.9 mmol/L (3.4-5.1); Sodium 137 mmol/L (137-145); Total Protein 7.4 g/dL (6.3-8.2)
--- NOTE | 2024-03-23 17:56 | ED_ITS ---
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 03/15/2024 she started having significant abdominal cramping and vaginal bleeding, lasting for a number of hours, then seemed to stop, she felt that she might have passed the , she did not seek medical care, she did not seek RhoGAM immunization. For the last day or so she has had intermittent vaginal spotting, increasing lower abdominal pain. She has some chills but no fever, she has not taking any Tylenol or Motrin medication. Related Data Home Medications Medication Instructions Recorded Confirmed No Known Home Medications 06/24/21 03/23/22 Allergies Allergy/AdvReac Type Severity Reaction Status Date / Time Sulfa (Sulfonamide Allergy Unknown Verified 03/23/22 13:21 Antibiotics) Review of Systems Review of Systems Narrative: see HPI Patient History Social History Smoking Status: Former smoker Smoking Status: Former smoker alcohol intake frequency: holidays/special occasions only Substance Use Type: marijuana Exam Narrative Exam Narrative: GENERAL: Well-developed patient, in mild distress. HEAD: Atraumatic. Normocephalic. EYES: Pupils equal round and reactive. Extraocular motions intact. No scleral icterus. No injection or drainage. ENT: Nose without bleeding, purulent drainage. Throat without erythema, tonsillar hypertrophy or exudate. Airway patent. NECK: Trachea midline. Non tender CARDIOVASCULAR: Regular rate and rhythm without murmurs, gallops, or rubs. RESPIRATORY: Clear to auscultation. Breath sounds equal bilaterally. No wheezes, rales, or rhonchi. GASTROINTESTINAL: Abdomen soft, non-tender, nondistended. Some mild suprapubic area discomfort, no guarding or rebound tenderness. EXTREMITIES: No edema or joint tenderness. BACK: Nontender without deformity or crepitance. No flank tenderness. NEURO: AOx3. SKIN: No rash or erythema of visible areas Initial Vital Signs Initial Vital Signs: Vital Signs Temperature 97.4 F L 03/23/24 16:30 Pulse Rate 68 03/23/24 16:30 Respiratory Rate 16 03/23/24 16:30 Blood Pressure 146/85 H 03/23/24 16:30 Pulse Oximetry 100 03/23/24 16:30 Oxygen Delivery Method Room Air 03/23/24 16:30 Course Orders Ordered: ED Orders 03/23/24 16:37 Urine Culture Stat Urine Microscopic Stat 03/23/24 16:47 US OB <= 14 weeks fetus Stat 03/23/24 17:21 ABO RH Type Stat Complete Blood Count AUTO DIFF Stat Comprehensive Metabolic Panel Stat HCG Quantitative /Beta subunit Stat Lipase Stat Vital Signs Vital signs: Vital Signs - 8 hr 03/23/24 16:30 03/23/24 17:23 03/23/24 17:24 Temperature 97.4 F L Pulse Rate 68 74 Respiratory Rate 16 Blood Pressure 146/85 H 124/88 Pulse Oximetry 100 98 Oxygen Delivery Method Room Air 03/23/24 17:24 03/23/24 17:30 03/23/24 17:31 Temperature Pulse Rate 71 65 Respiratory Rate Blood Pressure 110/57 L Pulse Oximetry 98 98 Oxygen Delivery Method Room Air 03/23/24 17:31 03/23/24 18:00 03/23/24 18:00 Temperature Pulse Rate 68 70 Respiratory Rate Blood Pressure 104/62 Pulse Oximetry 98 99 Oxygen Delivery Method Room Air 03/23/24 18:30 03/23/24 18:30 Temperature Pulse Rate 63 Respiratory Rate Blood Pressure 106/65 Pulse Oximetry 98 Oxygen Delivery Method Room Air Medical Decision Making Lab Data Lab results reviewed: Yes I reviewed the patient's lab results. 03/23/24 17:21 03/23/24 17:21 Labs: Lab Results 03/23/24 03/23/24 Range/Units 16:37 17:21 WBC 7.0 (4.5-11.0) X10^3/uL RBC 3.76 L (4.0-5.2) X10^6/uL Hgb 11.3 L (12.0-16.0) g/dL Hct 33.7 L (36-46) % MCV 89.7 (80-100) fL MCH 30.1 (26-34) PG MCHC 33.6 (30-36) % RDW 12.8 (11.6-14.8) % Plt Count 231 (150-400) X10^3/uL Neut % (Auto) 58.6 (50-75) % Lymph % (Auto) 30.7 (25-40) % [place] % (Auto) 5.8 (3-14) % Eos % (Auto) 4.1 H (2-4) % Baso % (Auto) 0.8 (0-2) % Neut # (Auto) 4100 (2404-5385) /uL Lymph # (Auto) 2100 (0269-7168) /uL [place] # (Auto) 400 (0-900) /uL Eos # (Auto) 300 (0-450) /uL Baso # (Auto) 100 (0-100) /uL Sodium 137 (137-145) mmol/L Potassium 3.9 (3.4-5.1) mmol/L Chloride 107 (98-107) mmol/L Carbon Dioxide 23 (22-32) mmol/L BUN 18 H (7-17) mg/dL Creatinine 0.94 (0.52-1.04) mg/dL Estimated GFR > 60 (>60) mL/min BUN/Creatinine Ratio 19.1 (6-22) Glucose 94 (70-100) mg/dL Calcium 9.2 (8.4-10.2) mg/dL Total Bilirubin 0.4 (0.2-1.3) mg/dL AST 24 (14-36) IU/L ALT 18 (<35) IU/L Alkaline Phosphatase 52 (38-126) U/L Total Protein 7.4 (6.3-8.2) g/dL Albumin 4.5 (3.5-5.0) g/dL Globulin 2.9 (1.7-4.1) g/dL Albumin/Globulin Ratio 1.6 (1.0-2.8) Lipase 107 (23-300) U/L HCG, Quant 113.47 mIU/mL Urine RBC None seen (0-5/HPF) Urine WBC 1-5/hpf (0-5/HPF) Ur Squamous Epith Cells None seen (0-5/HPF) Urine Bacteria None seen (None) Ur Culture Indicated? Specimen cultured Vol Urine Centrifuged 10ml (spun) Blood Type A Negative Point of Care Testing Test Results Positive Urine Dip Bedside Urine Glucose Negative Bedside Urine Bilirubin - Negative Bedside Urine Ketone - Negative Urine Specific Albers 1.025 Bedside Urine Occult Blood - Negative Bedside Urine pH 6.0 Bedside Urine Protein - Negative Bedside Urine Urobilinogen - Negative Bedside Urine Nitrite - Negative Bedside Urine Leukocytes +/- 15 Esterase Point of care testing: Point of Care Testing Test Results Positive Urine Dip Bedside Urine Glucose Negative Bedside Urine Bilirubin - Negative Bedside Urine Ketone - Negative Urine Specific Albers 1.025 Bedside Urine Occult Blood - Negative Bedside Urine pH 6.0 Bedside Urine Protein - Negative Bedside Urine Urobilinogen - Negative Bedside Urine Nitrite - Negative Bedside Urine Leukocytes +/- 15 Esterase Imaging Data Pelvic OB Ultrasound: Radiologist's Impression: [address] [address] Ultrasound Report Signed Patient: Kiara Kamara MR#: [id number] : 1985 Acct:[id number] Age/Sex: 38 / F Date of Service: 03/23/24 Loc: ED Accession Number: [id number] Procedure: US OB <= 14 weeks fetus Ordering Provider: Mehran Greer D.O. PROCEDURE: US OB <= 14 WEEKS FETUS INDICATIONS: Possible miscarriage OUTSIDE/PRIOR DATING DATA: Last menstrual period (LMP): 12/27/2023 LMP-based estimated date of delivery (ANGLE): 10/02/2024 TECHNIQUE: Real-time scanning was performed of the fetus and maternal pelvic organs, with image documentation. Endovaginal scanning was also performed to better visualize the fetus and maternal ovaries. COMPARISON: None. FINDINGS: Intrauterine fluid collection is seen with low level internal echoes. The collection measures 17 x 13 x 12 mm, with mean sac diameter of 14 mm. No pole is seen. Maternal organs: Ovaries are not visualized. IMPRESSION: of unknown location. Intrauterine irregular heterogeneous fluid collection is seen with mean diameter of 14 mm, which could represent an abnormal gestational sac. No pole is seen. Findings are suspicious but not diagnostic for early failure and correlation with clinical findings and beta HCG measurements is recommended. Follow-up ultrasound could be performed if indicated clinically. Approved by: Quique Lyon M.D. on 03/23/2024 at 17:48 MDM Narrative Medical decision making narrative: 38-year-old with 1st trimester demise known from ultrasound outside facility on 03/13/2024, known Rh negative type, 03/15/2024 had vaginal bleeding and cramping that seemed to resolve through that day. Now with some lower abdominal cramping and some spotting, interested in coordination for D&C that has not been scheduled yet. Hemoglobin 11, white blood cell count 7000, blood type A negative noted (inform patient of her blood type and Rh status). Ultrasound pelvis. Impression: ? of unknown location. Intrauterine irregular heterogeneous fluid collection is seen in the mean diameter 14 mm which could represent an abnormal gestational sac. No pole seen. Findings are suspicious but not diagnostic for early failure and correlation with clinical findings and beta hCG measurements is recommended. Follow up ultrasound can be performed if indicated clinically.? See radiology report Serum hCG 113 low here noted. We will consult Ob Gynecology Case discussed with Dr. Evans of OB/Gynecology, patient seems clinically stable at this time, afebrile, normal white count, normal hemoglobin, no emergent indications for D and C at this moment, but can schedule early next week. Keep NPO Tuesday night, hopefully can be worked in for Tuesday morning dilation curettage. Dr. Evans recommends holding any antibiotics for now. Return precautions discussed. Dr. Evans took the clinic information and name contact information for the patient. Patient informed of this plan, agreeable, discharged home. Discharge Plan Departure Patient Disposition: Home Clinical Impression: demise Activity Restrictions/Additional Instructions: 38-year-old female with recent early , suspected denies on outside facility ultrasound on 03/13/2024, known Rh negative blood type Rh status, on 03/15/2024 significant contractions and bleeding reported but no medical care sought at that time, no Rh immunoglobulin injection was given, symptoms seemed to get better that day, felt that she might have completed the miscarriage. However subsequent to this having vaginal spotting. Ultrasound today shows small 14 mm sac-like structure without a pole, possible retained demise material. No fever. Normal white blood cell count, normal hemoglobin. Case discussed with obstetrics gynecology Dr. Evans on-call today, who feels that you are stable and do not need emergent D and C at this moment now, but can be scheduled early next week hopefully on Tuesday03/26/2024. Dr. Evans advises having nothing by mouth to eat on Tuesday night 03/25/2024, in anticipation of possible surgery on 03/26/2024. Your contact information relayed, they will be in contact with you. Also her clinic information relayed below, if you wanted further contact down. Follow up with Gynecology as above. Return earlier to this/nearest emergency department for any change worsening symptoms or any concerns prior Prescriptions: No Action No Known Home Medications Referrals: Juli Evans MD [Physician] - Stand Alone Forms: Patient Portal/API
[2024-03-23 18:00] LABS: HCG Quantitative /Beta subunit 113.47 mIU/mL
== END 2024-03-23 18:52 | disposition home or self-care (01) ==
PROVIDERS: Emergency Medicine; Emergency Provider Emergency Medicine
DX: O03.9 Complete or unspecified spontaneous abortion without complication (principal)
CPT/HCPCS: 36415; 76801; 80053; 81003; 81015; 81025; 83690; 84702; 85025; 86900; 86901; 87086; 99284

== ENCOUNTER 2024-03-26 09:16 | Day surgery (SDC) | payer OTHER, MEDICAID, SELFPAY ==
[2024-03-26] VITALS (8 sets, daily range): BP systolic 100–135; BP diastolic 59–75; PULSE 20–78; RESP 12–16; TEMP 36.2–36.7; O2SAT 96–100; BMI 34.4
--- NOTE | 2024-03-26 | PATH_ITS ---
[facility] Accession Number: [id number] No. of containers..01 Tissue . 01 Material submitted: . product of conception - PRODUCT OF CONCEPTION . 01 Diagnosis: PRODUCTS OF CONCEPTION, CURETTINGS: Secretory endometrium with focal decidua-like changes; please see comment. Fragments with degeneration and infarction also present. Negative for malignancy. RAHAT 03/29/2024 1453 Local . 01 Comment: The entire specimen is submitted for microscopic examination and although decidua-like secretory endometrium is present, in addition to few infarcted tissue fragments and degenerative changes, definite or viable chorionic villi are not identified. If there is concern for ectopic , further workup with imaging studies and serial HCG serum levels is suggested. . 01 Electronically signed: . Aflonzo Peters MD, Pathologist NPI- [id number] . 01 Gross description: . Received in formalin with two identifiers and products of conception, are multiple fragments of tello spongy to membranous soft tissue admixed with mucohemorrhagic material aggregating to 4.2 x 2.9 x 0.6 cm. No tissue is identified. Rail Setter sections are submitted in cassettes A1-A2. ([id number]) . The remaining specimen is submitted in A3-A5. ([id number]) /RAHAT 03/28/2024 1754 Local . 01 Pathologist provided ICD-10: O02.1 . 01 CPT . 706160 Specimen Comment: A courtesy copy of this report has been sent to [phone] Performed at: [address] [facility] [address] [address], [place], [place] [id number] MD Emir Nick MD Phone: [phone]
[2024-03-26] MEDS: LACTATED RINGERS 1,000 ML 42 ML IV (09:53)
--- NOTE | 2024-03-26 10:01 | P.HPOB_ITS ---
History of Present Illness History of Present Illness Reason for admission: incomplete Narrative: Kiara Kamara is a 38 year old female 7 para 4 with an incomplete miscarriage. She presents today for a suction D&C. [facility] Surgical History (Updated 03/26/24 @ 10:02 by Juli Evans MD) H/O sinus surgery S/P tonsillectomy and adenoidectomy History of section Social History household members: spouse Smoking Status: Former smoker Meds Home Medications and Allergies Home Medications Medication Instructions Recorded Confirmed Type No Known Home Medications 06/24/21 03/26/24 History Allergies Allergy/AdvReac Type Severity Reaction Status Date / Time Sulfa (Sulfonamide Allergy Unknown Verified 03/23/22 13:21 Antibiotics) Exam Vital Signs (past 8 hours): - 03/26/24 09:51 Temperature 98 F Pulse Rate 65 Respiratory Rate 16 Blood Pressure 114/71 Pulse Oximetry 98 Oxygen Delivery Method Room Air Oxygen Delivery Method Room Air Narrative Exam Narrative: HEENT: No thyromegaly, no anterior cervical or supraclavicular lymphadenopathy. Lungs:Clear to auscultation bilaterally, no wheezes. Cardiovascular: Regular rate and rhythm, no murmurs, rubs, or gallops. Abdomen: Well-healed Pfannenstiel scars. No hepatosplenomegaly. No masses palpable. External genitalia: Normal Vagina: Normal Cervix: Normal Bimanual exam: 8 Week size anteverted uterus. Mobile. Extremities: No edema Assessment & Plan Assessment & Plan narrative: Assessment: 38-year-old 7 para 4 with an incomplete miscarriage Plan: Suction D&C The risks, benefits, and alternatives procedure were explained to the patient. The risks including bleeding, infection, and uterine perforation. She understands these risks and agrees to proceed. A full par Q was held and consent form was signed. Time-Based Coding :: [TOTAL MINUTES] spent with patient and on the chart (including review of chart, obtaining history, exam, reviewing outside data, placing orders, documenting exam and treatment plan, and counseling patient) on [DATE].
--- NOTE | 2024-03-26 10:04 | PM.PREOP ---
Pre-operative Note Interval Note History & Physical reviewed/Exam performed by Physician: Yes Changes to H&P: No H&P completed within 30 days and has changed as indicated here:: 03/26/24
[2024-03-26] MEDS: ACETAMINOPHEN IV 1,000 MG/100 ML VIAL 400 MG IV (10:05)
--- NOTE | 2024-03-26 10:33 | P.OP_ITS ---
Operative Date/Time/Diagnoses Date of procedure: 03/26/24 Time of procedure: 10:33 Pre-op diagnosis: Incomplete miscarriage Post-op diagnosis: same Procedure & Clinicians Procedure: Procedures Operation Date: 03/26/24 09:00 Actual Procedure Side Surgeon p Suction Dilation and Curettage Juli Evans MD Indications: 38-year-old 7 para 4 with an incomplete Ab Surgeon: Juli Evans Anesthesia Type: General (LMA) Operative Notes Findings: 8 week size anteverted uterus Large amount of products of conception Closure Type: not applicable Specimen(s): products of conception Applied: catheter (In/out) Estimated blood loss (mL): 50 Blood products transfused: none Procedure in detail: After informed consent was obtained, the patient was taken to the operating room where she was placed in the dorsal supine position. After adequate LMA general anesthesia was achieved, she was placed in the dorsal lithotomy position, and prepped and draped in the usual sterile fashion. A red rubber catheter was used to drain the bladder. A bivalve speculum was placed into the vagina. A single- tooth tenaculum was placed on the anterior lip of the cervix. The cervical os was sequentially dilated to the # 8 Hegar dilator. The dilator was removed. A # 7 curved plastic curette passed easily into the endometrial cavity. Under ultrasound guidance the products of conception were removed. The instruments we re removed from the uterus. The single-tooth tenaculum was removed from the anterior lip of the cervix. The bivalve speculum was removed from the vagina. Sponge, lap, and instrument counts were correct x2. The patient tolerated the procedure well, and was taken to PACU in stable condition. Complications: none Post-operative Condition: stable Disposition: PACU Plan for aftercare: Home after recovery
--- NOTE | 2024-03-26 10:53 | SUR.PHASEI ---
Confirmed with Dr Evans no need for Rhogam.
--- NOTE | 2024-03-26 11:29 | SUR.OPER ---
Lithotomy on padded OR bed, head on pillow, arms secured on padded arm boards at <90 degrees abduction. Legs secured in padded yellow fins stirrups.
== END 2024-03-26 11:11 | disposition home or self-care (01) ==
PROVIDERS: PCP Nurse Practitioner; Referring Provider Obstetrics & Gynecology; Visit Provider Obstetrics & Gynecology
PROC: (CPT 58120; principal; 2024-03-26 09:00)
DX: O02.1 Missed abortion (principal)
CPT/HCPCS: 59820; J0136

== ENCOUNTER → 2024-04-06 07:24 | Outpatient (CLI) | payer OTHER, MEDICAID, SELFPAY ==
[2024-04-06 08:53] LABS: HCG Quantitative /Beta subunit 4.51 mIU/mL
== END ==
LOC: LAB 07:25
PROVIDERS: PCP Nurse Practitioner; Referring Provider Obstetrics & Gynecology; Visit Provider Obstetrics & Gynecology
DX: O02.1 Missed abortion (principal)
CPT/HCPCS: 36415; 84702

== ENCOUNTER 2024-04-23 18:47 | Emergency (ER) | payer OTHER, MEDICAID, SELFPAY ==
[2024-04-23 18:49] VITALS: BP 131/77; PULSE 69; RESP 18; TEMP 36.4; O2SAT 100; BMI 35.4
== END 2024-04-23 22:15 | disposition left against medical advice (07) ==
PROVIDERS: Emergency Provider Emergency Medicine; PCP Nurse Practitioner
DX: S99.929A Unspecified injury of unspecified foot, initial encounter (principal); W22.8XXA Striking against or struck by other objects, initial encounter
CPT/HCPCS: 99281